=== PATIENT | male | born 1980 | race Caucasian/White ===

== ENCOUNTER 2018-07-19 07:54 | Day surgery (SDC) | payer BC ==
[~2018-07-19 07:54] MED LIST: ACEASPCAF; ASPI325; BUPR1 PO; CIME400 PO; CIPR250 PO; CRUTCH USE; CYCL10 PO; DIPATR PO; HYDACE5 PO; IBUP800 PO; KETO10 PO; LORA10ER PO; NAPR500 PO; NAPR550 PO; OXYACE5T PO; OXYC15ER PO; PENVK500 PO; PRED20 PO; PROM25 PO; SULTRIDS PO; TAMS.4ER PO; TRAM50 PO
[2018-07-19] MEDS ORDERED: AMPDEX30CR (14:32)
[2018-07-19] MEDS ORDERED: HYDMOR2 PO (14:32)
[2018-07-19] MEDS ORDERED: BUPRENORPHINE HC8 MG SL (14:33)
[2018-07-19] MEDS ORDERED: CUBICIN RF500 MG IV (14:36)
== END 2018-07-19 15:15 | disposition home or self-care (01) ==
LOC: ATC 07:54
DX: I33.0 Acute and subacute infective endocarditis (principal); B95.2 Enterococcus as the cause of diseases classified elsewhere
CPT/HCPCS: 96365; J0878

== ENCOUNTER 2018-07-20 00:12 | Day surgery (SDC) | payer BC ==
[~2018-07-20 00:12] MED LIST changes: +AMPDEX30CR; +BUPRENORPHINE HC8 MG SL; +CUBICIN RF500 MG IV; +HYDMOR2 PO
== END 2018-07-20 16:00 | disposition home or self-care (01) ==
LOC: ATC 00:12
DX: I33.0 Acute and subacute infective endocarditis (principal); B95.2 Enterococcus as the cause of diseases classified elsewhere
CPT/HCPCS: 96365; J0878

== ENCOUNTER 2018-07-21 00:06 | Day surgery (SDC) | payer BC | END 2018-07-21 15:35 | disposition home or self-care (01) | LOC: ATC 00:06 | DX: I35.8 Other nonrheumatic aortic valve disorders (principal); B95.2 Enterococcus as the cause of diseases classified elsewhere | CPT/HCPCS: 96365; J0878 ==

== ENCOUNTER 2018-07-22 00:32 | Day surgery (SDC) | payer BC ==
[2018-07-22 10:54] LABS: Hematocrit 27.8 % (37.0-53.0); Hemoglobin 8.7 g/dL (13.5-17.5); Mean Corpuscular HGB Conc 31.3 g/dL (31.5-36.5); Mean Corpuscular Volume 83 fL (80-100); Mean Platelet Volume 9.9 fL (9.1-12.4); Platelet Count 270 K/mm3 (150-400); RDW Coefficient Variation 16.3 % (11.7-14.2); RDW Standard Deviation 48.6 fL (35.1-46.3); Red Blood Cell Count 3.35 M/mm3 (4.30-5.90); White Blood Cell Count 8.28 K/mm3 (4.00-11.30)
[2018-07-22 11:21] LABS: Alanine Aminotransfer (ALT/SGP 21 U/L (12-78); Albumin, Blood 3.3 g/dL (3.4-5.0); Albumin/Globulin Ratio 0.7 (0.8-1.8); Alk Phos 91 U/L (50-136); Anion Gap 9 mmol/L (6-16); Aspartate Aminotrans (AST/SGOT 22 U/L (12-37); Bilirubin, Total 0.6 mg/dL (0.1-1.0); Blood Urea Nitrogen 20 mg/dL (8-24); Bun/Creatinine Ratio 31.1 (12.0-20.0); CO2, Blood 27 mmol/L (21-32); CPK Creatine Kinase 40 U/L (39-308); Calcium, Blood 8.8 mg/dL (8.5-10.1); Chloride, Blood 100 mmol/L (98-108); Creatinine, Blood 0.64 mg/dL (0.60-1.20); Globulin, Blood 4.5 g/dL (2.2-4.0); Glomerular Filtration Rate >60 (60-); Glucose, Blood 88 mg/dL (70-99); Potassium, Blood 3.7 mmol/L (3.5-5.5); Sodium, Blood 136 mmol/L (136-145); Total Protein, Blood 7.8 g/dL (6.4-8.2)
--- NOTE | 2018-07-22 13:50 | NUR ---
LAB RESULTS FROM TODAY FAXED TO DR. REID AT [phone].
== END 2018-07-22 10:50 | disposition home or self-care (01) ==
LOC: ATC 00:32
PROVIDERS: Internal Medicine Infectious Disease
DX: I33.0 Acute and subacute infective endocarditis (principal); B95.2 Enterococcus as the cause of diseases classified elsewhere; I35.8 Other nonrheumatic aortic valve disorders; Z95.2 Presence of prosthetic heart valve
CPT/HCPCS: 80053; 82550; 85027; 96365; J0878

== ENCOUNTER 2018-07-23 00:06 | Day surgery (SDC) | payer OTHER | END 2018-07-23 15:58 | disposition home or self-care (01) | LOC: ATC 00:06 | DX: I35.8 Other nonrheumatic aortic valve disorders (principal) | CPT/HCPCS: 96365; J0878 ==

== ENCOUNTER 2018-07-24 00:27 | Day surgery (SDC) | payer BC | END 2018-07-24 16:25 | disposition home or self-care (01) | LOC: ATC 00:27 | DX: I35.8 Other nonrheumatic aortic valve disorders (principal) | CPT/HCPCS: 96365; J0878 ==

== ENCOUNTER 2018-07-25 00:18 | Day surgery (SDC) | payer OTHER | END 2018-07-25 16:05 | disposition home or self-care (01) | LOC: ATC 00:18 | DX: I38 Endocarditis, valve unspecified (principal) | CPT/HCPCS: 96365; J0878 ==

== ENCOUNTER 2018-07-26 00:11 | Day surgery (SDC) | payer BC ==
--- NOTE | 2018-07-26 15:59 | NUR ---
ERROR ON STOP TIME IN [facility], ACTUAL STOP TIME FOR DAPTO IS 1555.
== END 2018-07-26 15:58 | disposition home or self-care (01) ==
LOC: ATC 00:11
DX: I35.8 Other nonrheumatic aortic valve disorders (principal)
CPT/HCPCS: 96365; J0878

== ENCOUNTER 2018-07-27 14:58 | Day surgery (SDC) | payer BC | END 2018-07-27 15:47 | disposition home or self-care (01) | LOC: ATC 14:58 | DX: I33.0 Acute and subacute infective endocarditis (principal); B95.2 Enterococcus as the cause of diseases classified elsewhere | CPT/HCPCS: 96365; J0878 ==

== ENCOUNTER 2018-07-28 00:08 | Day surgery (SDC) | payer BC | END 2018-07-28 15:56 | disposition home or self-care (01) | LOC: ATC 00:08 | DX: I33.0 Acute and subacute infective endocarditis (principal); B95.2 Enterococcus as the cause of diseases classified elsewhere | CPT/HCPCS: 96365; J0878 ==

== ENCOUNTER 2018-07-29 00:07 | Day surgery (SDC) | payer BC | END 2018-07-29 22:46 | disposition home or self-care (01) | LOC: ATC 00:07 | DX: I35.8 Other nonrheumatic aortic valve disorders (principal) | CPT/HCPCS: 96365; J0878 ==

== ENCOUNTER 2018-07-31 00:12 | Day surgery (SDC) | payer OTHER | END 2018-07-31 15:22 | disposition home or self-care (01) | LOC: ATC 00:12 | DX: I33.0 Acute and subacute infective endocarditis (principal); B95.2 Enterococcus as the cause of diseases classified elsewhere | CPT/HCPCS: 96365; J0878 ==

== ENCOUNTER 2018-08-01 00:22 | Day surgery (SDC) | payer BC | END 2018-08-01 15:32 | disposition home or self-care (01) | LOC: ATC 00:22 | DX: I33.0 Acute and subacute infective endocarditis (principal); B95.2 Enterococcus as the cause of diseases classified elsewhere | CPT/HCPCS: 96365; J0878 ==

== ENCOUNTER 2018-08-02 00:25 | Day surgery (SDC) | payer OTHER | END 2018-08-02 11:05 | disposition home or self-care (01) | LOC: ATC 00:25 | DX: I33.0 Acute and subacute infective endocarditis (principal); B95.2 Enterococcus as the cause of diseases classified elsewhere | CPT/HCPCS: 96365; J0878 ==

== ENCOUNTER 2018-08-03 08:51 | Day surgery (SDC) | payer OTHER | END 2018-08-03 09:24 | disposition home or self-care (01) | LOC: ATC 08:51 | DX: I33.0 Acute and subacute infective endocarditis (principal); B95.2 Enterococcus as the cause of diseases classified elsewhere | CPT/HCPCS: 96365; J0878 ==

== ENCOUNTER 2018-08-04 11:00 | Day surgery (SDC) | payer OTHER | END 2018-08-04 11:42 | disposition home or self-care (01) | LOC: ATC 11:00 | DX: I33.0 Acute and subacute infective endocarditis (principal); B95.2 Enterococcus as the cause of diseases classified elsewhere | CPT/HCPCS: 96365; J0878 ==

== ENCOUNTER 2018-08-05 00:04 | Day surgery (SDC) | payer OTHER | END 2018-08-05 09:52 | disposition home or self-care (01) | LOC: ATC 00:04 | DX: I33.0 Acute and subacute infective endocarditis (principal); B95.2 Enterococcus as the cause of diseases classified elsewhere | CPT/HCPCS: 96365; J0878 ==

== ENCOUNTER 2018-08-07 00:24 | Day surgery (SDC) | payer OTHER ==
[2018-08-07 15:07] LABS: Hemoglobin 10.7 g/dL (13.5-17.5); Mean Corpuscular HGB 25.7 pg (26.0-34.0); Mean Corpuscular HGB Conc 30.6 g/dL (31.5-36.5); Mean Corpuscular Volume 84 fL (80-100); Platelet Count 284 K/mm3 (150-400); RDW Coefficient Variation 15.3 % (11.7-14.2); RDW Standard Deviation 47.1 fL (35.1-46.3); Red Blood Cell Count 4.16 M/mm3 (4.30-5.90)
[2018-08-07 15:30] LABS: Alanine Aminotransfer (ALT/SGP 18 U/L (12-78); Albumin, Blood 3.6 g/dL (3.4-5.0); Albumin/Globulin Ratio 0.8 (0.8-1.8); Alk Phos 106 U/L (50-136); Anion Gap 6 mmol/L (6-16); Aspartate Aminotrans (AST/SGOT 21 U/L (12-37); Bilirubin, Total 0.5 mg/dL (0.1-1.0); Blood Urea Nitrogen 14 mg/dL (8-24); Bun/Creatinine Ratio 10.5 (12.0-20.0); CO2, Blood 29 mmol/L (21-32); CPK Creatine Kinase 33 U/L (39-308); Calcium, Blood 9.4 mg/dL (8.5-10.1); Chloride, Blood 104 mmol/L (98-108); Creatinine, Blood 1.33 mg/dL (0.60-1.20); Globulin, Blood 4.4 g/dL (2.2-4.0); Glomerular Filtration Rate >60 (60-); Glucose, Blood 78 mg/dL (70-99); Potassium, Blood 4.3 mmol/L (3.5-5.5); Sodium, Blood 139 mmol/L (136-145)
== END 2018-08-07 15:36 | disposition home or self-care (01) ==
LOC: ATC 00:24
PROVIDERS: Internal Medicine Infectious Disease
DX: I33.0 Acute and subacute infective endocarditis (principal); B95.2 Enterococcus as the cause of diseases classified elsewhere
CPT/HCPCS: 80053; 82550; 85027; 96365; J0878

== ENCOUNTER 2018-08-08 00:05 | Day surgery (SDC) | payer OTHER | END 2018-08-08 15:45 | disposition home or self-care (01) | LOC: ATC 00:05 | DX: I33.0 Acute and subacute infective endocarditis (principal); B95.2 Enterococcus as the cause of diseases classified elsewhere | CPT/HCPCS: 96365; J0878 ==

== ENCOUNTER 2018-08-09 00:51 | Day surgery (SDC) | payer BC | END 2018-08-09 14:26 | disposition home or self-care (01) | LOC: ATC 00:51 | DX: I33.0 Acute and subacute infective endocarditis (principal); B95.2 Enterococcus as the cause of diseases classified elsewhere | CPT/HCPCS: J0878 ==

== ENCOUNTER 2018-08-10 09:55 | Day surgery (SDC) | payer BC | END 2018-08-10 23:17 | disposition home or self-care (01) | LOC: ATC 09:55 | DX: I33.0 Acute and subacute infective endocarditis (principal); B95.2 Enterococcus as the cause of diseases classified elsewhere | CPT/HCPCS: J0878 ==

== ENCOUNTER 2018-08-11 09:48 | Day surgery (SDC) | payer BC | END 2018-08-11 22:40 | disposition home or self-care (01) | LOC: ATC 09:48 | DX: I33.0 Acute and subacute infective endocarditis (principal); B95.2 Enterococcus as the cause of diseases classified elsewhere | CPT/HCPCS: 96365; J0878 ==

== ENCOUNTER 2018-08-14 07:14 | Day surgery (SDC) | payer BC ==
[2018-08-14 11:27] LABS: BASOPHILS ABSOLUTE AUTO 0.04 K/mm3 (0.00-0.23); BASOPHILS PERCENT AUTO 1 % (0-2); EOSINOPHILS ABSOLUTE AUTO 0.68 K/mm3 (0.00-0.68); EOSINOPHILS PERCENT AUTO 13 % (0-6); Hematocrit 34.4 % (37.0-53.0); Hemoglobin 10.5 g/dL (13.5-17.5); IMMATURE GRAN ABSOLUTE AUTO 0.01 K/mm3 (0.00-0.10); IMMATURE GRAN PERCENT AUTO 0 % (0-1); LYMPHOCYTES ABSOLUTE AUTO 2.05 K/mm3 (0.84-5.20); LYMPHOCYTES PERCENT AUTO 39 % (21-46); MONOCYTES ABSOLUTE AUTO 0.45 K/mm3 (0.16-1.47); MONOCYTES PERCENT AUTO 9 % (4-13); Mean Corpuscular HGB 25.1 pg (26.0-34.0); Mean Corpuscular HGB Conc 30.5 g/dL (31.5-36.5); Mean Corpuscular Volume 82 fL (80-100); Mean Platelet Volume 9.4 fL (9.1-12.4); NEUTROPHILS ABSOLUTE AUTO 2.08 K/mm3 (1.96-9.15); NEUTROPHILS PERCENT AUTO 39 % (41-73); Platelet Count 213 K/mm3 (150-400); RDW Coefficient Variation 14.8 % (11.7-14.2); RDW Standard Deviation 44.2 fL (35.1-46.3); Red Blood Cell Count 4.19 M/mm3 (4.30-5.90); White Blood Cell Count 5.31 K/mm3 (4.00-11.30)
[2018-08-14 11:33] LABS: Alanine Aminotransfer (ALT/SGP 25 U/L (12-78); Albumin, Blood 3.7 g/dL (3.4-5.0); Albumin/Globulin Ratio 0.9 (0.8-1.8); Alk Phos 91 U/L (50-136); Anion Gap 8 mmol/L (6-16); Aspartate Aminotrans (AST/SGOT 27 U/L (12-37); Bilirubin, Total 0.3 mg/dL (0.1-1.0); Blood Urea Nitrogen 16 mg/dL (8-24); CO2, Blood 28 mmol/L (21-32); CPK Creatine Kinase 38 U/L (39-308); Calcium, Blood 9.2 mg/dL (8.5-10.1); Chloride, Blood 104 mmol/L (98-108); Globulin, Blood 4.3 g/dL (2.2-4.0); Glomerular Filtration Rate >60 (60-); Glucose, Blood 83 mg/dL (70-99); Sodium, Blood 140 mmol/L (136-145)
== END 2018-08-14 11:42 | disposition home or self-care (01) ==
LOC: ATC 07:14
PROVIDERS: Internal Medicine Infectious Disease
DX: I33.0 Acute and subacute infective endocarditis (principal); B95.2 Enterococcus as the cause of diseases classified elsewhere
CPT/HCPCS: 80053; 82550; 85025; 96365; J0878

== ENCOUNTER 2018-08-15 00:04 | Day surgery (SDC) | payer BC | END 2018-08-16 13:24 | disposition home or self-care (01) | LOC: ATC 00:04 | DX: I33.0 Acute and subacute infective endocarditis (principal); B95.2 Enterococcus as the cause of diseases classified elsewhere | CPT/HCPCS: 96365; J0878 ==

== ENCOUNTER 2018-08-18 11:01 | Day surgery (SDC) | payer BC ==
[2018-08-18 11:27] LABS: BASOPHILS ABSOLUTE AUTO 0.06 K/mm3 (0.00-0.23); BASOPHILS PERCENT AUTO 1 % (0-2); EOSINOPHILS ABSOLUTE AUTO 0.71 K/mm3 (0.00-0.68); EOSINOPHILS PERCENT AUTO 11 % (0-6); Hematocrit 35.5 % (37.0-53.0); Hemoglobin 10.8 g/dL (13.5-17.5); IMMATURE GRAN ABSOLUTE AUTO 0.01 K/mm3 (0.00-0.10); IMMATURE GRAN PERCENT AUTO 0 % (0-1); LYMPHOCYTES ABSOLUTE AUTO 2.64 K/mm3 (0.84-5.20); LYMPHOCYTES PERCENT AUTO 42 % (21-46); MONOCYTES ABSOLUTE AUTO 0.46 K/mm3 (0.16-1.47); MONOCYTES PERCENT AUTO 7 % (4-13); Mean Corpuscular HGB 25.5 pg (26.0-34.0); Mean Corpuscular HGB Conc 30.4 g/dL (31.5-36.5); Mean Corpuscular Volume 84 fL (80-100); Mean Platelet Volume 9.8 fL (9.1-12.4); NEUTROPHILS ABSOLUTE AUTO 2.47 K/mm3 (1.96-9.15); NEUTROPHILS PERCENT AUTO 39 % (41-73); Platelet Count 263 K/mm3 (150-400); RDW Coefficient Variation 14.8 % (11.7-14.2); RDW Standard Deviation 45.1 fL (35.1-46.3); Red Blood Cell Count 4.23 M/mm3 (4.30-5.90); White Blood Cell Count 6.35 K/mm3 (4.00-11.30)
[2018-08-18 11:43] LABS: Alanine Aminotransfer (ALT/SGP 28 U/L (12-78); Albumin, Blood 3.6 g/dL (3.4-5.0); Albumin/Globulin Ratio 0.9 (0.8-1.8); Alk Phos 86 U/L (50-136); Anion Gap 6 mmol/L (6-16); Aspartate Aminotrans (AST/SGOT 32 U/L (12-37); Bilirubin, Total 0.3 mg/dL (0.1-1.0); Blood Urea Nitrogen 13 mg/dL (8-24); Bun/Creatinine Ratio 20.9 (12.0-20.0); CO2, Blood 29 mmol/L (21-32); CPK Creatine Kinase 44 U/L (39-308); Calcium, Blood 9.4 mg/dL (8.5-10.1); Chloride, Blood 104 mmol/L (98-108); Creatinine, Blood 0.62 mg/dL (0.60-1.20); Globulin, Blood 4.2 g/dL (2.2-4.0); Glomerular Filtration Rate >60 (60-); Glucose, Blood 96 mg/dL (70-99); Sodium, Blood 139 mmol/L (136-145); Total Protein, Blood 7.8 g/dL (6.4-8.2)
== END 2018-08-18 11:34 | disposition home or self-care (01) ==
LOC: ATC 11:01
PROVIDERS: Internal Medicine Infectious Disease
DX: I33.0 Acute and subacute infective endocarditis (principal); B95.2 Enterococcus as the cause of diseases classified elsewhere
CPT/HCPCS: 80053; 82550; 85025; J0878

== ENCOUNTER 2018-08-19 00:36 | Day surgery (SDC) | payer BC | END 2018-08-19 11:52 | disposition home or self-care (01) | LOC: ATC 00:36 | DX: I33.0 Acute and subacute infective endocarditis (principal); B95.2 Enterococcus as the cause of diseases classified elsewhere | CPT/HCPCS: J0878 ==

== ENCOUNTER 2018-08-20 00:03 | Day surgery (SDC) | payer BC | END 2018-08-20 11:00 | disposition home or self-care (01) | LOC: ATC 00:03 | DX: I33.0 Acute and subacute infective endocarditis (principal); B95.2 Enterococcus as the cause of diseases classified elsewhere | CPT/HCPCS: 96365; J0878 ==

== ENCOUNTER 2018-08-22 05:20 | Day surgery (SDC) | payer BC | END 2018-08-22 11:35 | disposition home or self-care (01) | LOC: ATC 05:20 | DX: I33.0 Acute and subacute infective endocarditis (principal); B95.2 Enterococcus as the cause of diseases classified elsewhere | CPT/HCPCS: 96365; J0878 ==

== ENCOUNTER 2018-10-02 00:19 | Day surgery (SDC) | payer OTHER ==
[2018-10-02] MEDS ORDERED: ACET325 PO (16:26)
[2018-10-02] MEDS ORDERED: AMPDEX30CR PO (16:27)
[2018-10-02] MEDS ORDERED: VITAMIN D250000 UNIT PO (16:29)
[2018-10-02] MEDS ORDERED: Fergon240 M1 PO (16:37)
[2018-10-02] MEDS ORDERED: Hair, Skin & N1 EACH PO (16:38)
[2018-10-02] MEDS ORDERED: Revatio20 MG PO (16:38)
== END 2018-10-02 17:02 | disposition home or self-care (01) ==
LOC: ATC 00:19
DX: I33.0 Acute and subacute infective endocarditis (principal)
CPT/HCPCS: 96365; J0878

== ENCOUNTER 2018-10-03 00:01 | Day surgery (SDC) | payer OTHER ==
[~2018-10-03 00:01] MED LIST changes: +ACET325 PO; +AMPDEX30CR PO; +Fergon240 M1 PO; +Hair, Skin & N1 EACH PO; +Revatio20 MG PO; +VITAMIN D250000 UNIT PO
== END 2018-10-03 17:40 | disposition home or self-care (01) ==
LOC: ATC 00:01
DX: I33.0 Acute and subacute infective endocarditis (principal); B95.2 Enterococcus as the cause of diseases classified elsewhere; I35.1 Nonrheumatic aortic (valve) insufficiency; D62 Acute posthemorrhagic anemia
CPT/HCPCS: 96365; J0878

== ENCOUNTER 2018-10-08 00:30 | Day surgery (SDC) | payer OTHER | END 2018-10-08 11:15 | disposition home or self-care (01) | LOC: ATC 00:30 | DX: I33.0 Acute and subacute infective endocarditis (principal); B95.7 Other staphylococcus as the cause of diseases classified elsewhere; Z79.899 Other long term (current) drug therapy; Z79.82 Long term (current) use of aspirin | CPT/HCPCS: 96365; J0878 ==

== ENCOUNTER 2018-10-09 00:19 | Day surgery (SDC) | payer OTHER | END 2018-10-09 11:52 | disposition home or self-care (01) | LOC: ATC 00:19 | DX: I33.0 Acute and subacute infective endocarditis (principal); B95.2 Enterococcus as the cause of diseases classified elsewhere; I35.1 Nonrheumatic aortic (valve) insufficiency; D62 Acute posthemorrhagic anemia; Z79.899 Other long term (current) drug therapy; Z79.82 Long term (current) use of aspirin | CPT/HCPCS: 96365; J0878 ==

== ENCOUNTER 2018-10-10 00:15 | Day surgery (SDC) | payer OTHER | END 2018-10-10 10:52 | disposition home or self-care (01) | LOC: ATC 00:15 | DX: I33.0 Acute and subacute infective endocarditis (principal); B95.7 Other staphylococcus as the cause of diseases classified elsewhere | CPT/HCPCS: 96365; J0878 ==

== ENCOUNTER 2018-10-14 00:07 | Day surgery (SDC) | payer OTHER | END 2018-10-14 14:18 | disposition home or self-care (01) | LOC: ATC 00:07 | DX: I33.0 Acute and subacute infective endocarditis (principal); B95.7 Other staphylococcus as the cause of diseases classified elsewhere; Z79.82 Long term (current) use of aspirin; Z79.899 Other long term (current) drug therapy | CPT/HCPCS: 96365; J0878 ==

== ENCOUNTER 2018-10-15 00:27 | Day surgery (SDC) | payer OTHER | END 2018-10-15 10:47 | disposition home or self-care (01) | LOC: ATC 00:27 | DX: I33.0 Acute and subacute infective endocarditis (principal); B95.7 Other staphylococcus as the cause of diseases classified elsewhere; Z79.899 Other long term (current) drug therapy | CPT/HCPCS: 96365; J0878 ==

== ENCOUNTER 2018-10-16 00:01 | Day surgery (SDC) | payer OTHER | END 2018-10-16 10:15 | disposition home or self-care (01) | LOC: ATC 00:01 | DX: I33.0 Acute and subacute infective endocarditis (principal); B95.7 Other staphylococcus as the cause of diseases classified elsewhere | CPT/HCPCS: 96365; J0878 ==

== ENCOUNTER 2018-10-17 00:17 | Day surgery (SDC) | payer OTHER | END 2018-10-17 10:36 | disposition home or self-care (01) | LOC: ATC 00:17 | DX: I33.0 Acute and subacute infective endocarditis (principal); B95.7 Other staphylococcus as the cause of diseases classified elsewhere; Z79.899 Other long term (current) drug therapy; Z79.82 Long term (current) use of aspirin | CPT/HCPCS: 96365; J0878 ==

== ENCOUNTER 2018-10-21 00:28 | Day surgery (SDC) | payer OTHER | END 2018-10-21 22:48 | disposition home or self-care (01) | LOC: ATC 00:28 | DX: I33.0 Acute and subacute infective endocarditis (principal); B95.7 Other staphylococcus as the cause of diseases classified elsewhere; Z79.899 Other long term (current) drug therapy; Z79.82 Long term (current) use of aspirin | CPT/HCPCS: 96365; J0878 ==

== ENCOUNTER 2018-10-22 00:16 | Day surgery (SDC) | payer OTHER | END 2018-10-22 23:02 | disposition home or self-care (01) | LOC: ATC 00:16 | DX: I33.0 Acute and subacute infective endocarditis (principal); B95.7 Other staphylococcus as the cause of diseases classified elsewhere | CPT/HCPCS: J0878 ==

== ENCOUNTER 2018-10-23 00:21 | Day surgery (SDC) | payer OTHER | END 2018-10-24 23:01 | disposition home or self-care (01) | LOC: ATC 00:21 | DX: I33.0 Acute and subacute infective endocarditis (principal); B95.7 Other staphylococcus as the cause of diseases classified elsewhere; Z79.82 Long term (current) use of aspirin; Z79.899 Other long term (current) drug therapy | CPT/HCPCS: 96365; J0878 ==

== ENCOUNTER 2018-10-24 00:08 | Day surgery (SDC) | payer OTHER | END 2018-10-24 11:00 | disposition home or self-care (01) | LOC: ATC 00:08 | DX: I33.0 Acute and subacute infective endocarditis (principal); B95.7 Other staphylococcus as the cause of diseases classified elsewhere; Z79.899 Other long term (current) drug therapy; Z79.82 Long term (current) use of aspirin | CPT/HCPCS: 96365; J0878 ==

== ENCOUNTER 2018-10-28 00:08 | Day surgery (SDC) | payer OTHER | END 2018-10-28 23:03 | disposition home or self-care (01) | LOC: ATC 00:08 | DX: I33.0 Acute and subacute infective endocarditis (principal); B95.7 Other staphylococcus as the cause of diseases classified elsewhere | CPT/HCPCS: J0878 ==